=== PATIENT | male | born 1945 | race Two or more races ===

== ENCOUNTER 2019-07-26 11:00 | Outpatient (CLI) | payer OTHER | END 2019-07-26 11:30 | disposition home or self-care (01) | LOC: CATH 11:00 → EDSTATUS 07-29 11:07 | PROVIDERS: ATTEND Specialist | DX: I44.7 Left bundle-branch block, unspecified (principal); R00.1 Bradycardia, unspecified; R55 Syncope and collapse | CPT/HCPCS: 93005 ==